=== PATIENT | female | born 1985 | race American Indian/Alaskan Native ===

== ENCOUNTER 2017-12-13 09:18 | Emergency (ER) | payer MEDICARE ==
[2017-12-13 11:59] LABS: HCG Qualitative,Urine Negative (Negative)
--- NOTE | 2017-12-13 12:07 | Emergency Department Report ---
HPI - General Chief Complaint: Fever Time Seen by Provider: 12/13/17 11:32 - HPI HPI: She is a 32-year-old female with history of hypertension controlled with medication who presents to ED complaining of low pelvic cramping and thinking she might be . Patient states she took a test yesterday at home that was negative but wants to be evaluated. Patient states she has a history of fibroids 1-2 years. Patient states she's never been . She denies vaginal bleeding, vaginal discharge, chest pain, fever, nausea or vomiting. She reports normal bowel movement ED Past Medical Hx - Past Medical History Hx Hypertension: Yes Additional medical history: fibroid - Medications Home Medications: Home Medications Medication Instructions Recorded Confirmed Last Taken Type traMADol [Ultram] 50 mg PO Q6HR PRN #20 tablet 12/13/17 Unknown Rx ED Review of Systems ROS: Stated complaint: FLU LIKE SYMPTOMS Other details as noted in HPI Constitutional: denies: chills, fever Eyes: denies: eye pain, eye discharge, vision change ENT: denies: ear pain, throat pain Respiratory: denies: cough, shortness of breath, wheezing Cardiovascular: denies: chest pain, palpitations Endocrine: no symptoms reported Gastrointestinal: denies: abdominal pain, nausea, vomiting, diarrhea Genitourinary: denies: urgency, dysuria, frequency, hematuria, discharge Musculoskeletal: denies: back pain, joint swelling, arthralgia Skin: denies: rash, lesions Neurological: denies: headache, weakness, paresthesias Psychiatric: denies: anxiety, depression Hematological/Lymphatic: denies: easy bleeding, easy bruising Physical Exam - Physical Exam Vital Signs: Vital Signs 12/13/17 09:35 Temperature 98.8 F Pulse Rate 80 Respiratory 16 Rate Blood Pressure 160/100 O2 Sat by Pulse 97 Oximetry Physical Exam: GENERAL: Alert and oriented x3, no apparent distress, Normal Gait, atraumatic. HEAD: Head is normocephalic and a-traumatic. LUNGS: Symetrical with respiration, No wheezing, no rales or crackles, CTAB. HEART: S1, S2 present, regular rate and rhythm without murmur, no rubs, no gallops. Non tender to palpation ABDOMEN: No organomegaly was noted,Positive bowel sounds, soft, and non- distended. . Nontender to palpation on all Quadrants, NO CVA tenderness. BACK: Full range of motion, no spinal tenderness, nontender to palpation. NEUROLOGIC: The patient is cooperative with no focal neurologic deficits. SKIN: Warm and dry, No lesions, No ulceration or induration present. ED Course Vital Signs 12/13/17 09:35 Temperature 98.8 F Pulse Rate 80 Respiratory 16 Rate Blood Pressure 160/100 O2 Sat by Pulse 97 Oximetry ED Medical Decision Making - Medical Decision Making This is a 32-year-old female presents with history of uterine fibroids and amenorrhea ED course: Urinalysis and urine test ordered test negative, urinalysis positive for yeast. Patient received Diflucan in ED prior to discharge. I discussed the patient denies shortness of follow-up with a primary care physician or [facility] I discussed the patient is given her referrals for [facility] and to follow-up. Patient is in no acute distress or respiratory distress. I discussed patient test is negative. I discussed blood pressure control with her indication, weight loss, and sometimes depending on size and position of uterus can cause amenorrhea and pelvic pain. Patient is alert and oriented 3, shows a sinus instructions given. Critical care attestation.: If time is entered above; I have spent that time in minutes in the direct care of this critically ill patient, excluding procedure time. ED Disposition Clinical Impression: History of uterine fibroid, examination or test, negative result, Amenorrhea, unspecified, Yeast cystitis Disposition: DC- TO HOME OR SELFCARE Is pt being admited?: No Does the pt Need Aspirin: No Condition: Stable Instructions: Uterine Fibroids (ED), Vulvovaginal Candidiasis (ED), Chronic Pelvic Pain in Women (ED) Additional Instructions: Make sure to follow up with the primary care physician as discussed. Follow-up with [facility] as referred test was negative today Take all your medications as you've been prescribed. If you have any worsening symptoms or develop new symptoms please return to ED immediately. Prescriptions: traMADol [Ultram] 50 mg PO Q6HR PRN #20 tablet PRN Reason: Pain Referrals: PRIMARY MD LOUIE [Primary Care Provider] - 3-5 Days SETH WHARTON MD [Referring] - 3-5 Days BERNARD QUILES MD [Referring] - 3-5 Days MARIO QUILES MD [Referring] - 3-5 Days Forms: Accompanied Note, Work/School Release Form(ED) Time of Disposition: 12:35
[2017-12-13 12:08] LABS: Bilirubin,Urine NEG (Negative); Blood,Urine NEG (Negative); Color,Urine Yellow (Yellow); Hyaline Casts,Urine 3 /LPF; Mucus,Urine FEW /HPF; Protein,Urine <15 mg/dL mg/dL (Negative); Urobilinogen,Urine < 2.0 mg/dL (<2.0)
[2017-12-13] MEDS ORDERED: DIFLUCAN PO ONE (13:00)
[2017-12-13 13:29] VITALS: BP 154/98
== END 2017-12-13 13:28 | disposition home or self-care (01) ==
LOC: ED 09:18
DX: N91.2 Amenorrhea, unspecified (principal); N30.90 Cystitis, unspecified without hematuria; I10 Essential (primary) hypertension
CPT/HCPCS: 81001; 81025

== ENCOUNTER 2018-02-28 09:28 | Emergency (ER) | payer MEDICARE ==
[2018-02-28 10:23] VITALS: BP 166/101
--- NOTE | 2018-02-28 11:36 | Emergency Department Report ---
ED Female HPI - General Chief complaint: Abdominal Pain Stated complaint: ABD PAIN Time Seen by Provider: 02/28/18 11:13 Source: patient Mode of arrival: Ambulatory Limitations: No Limitations - History of Present Illness Initial comments: This is a 32-year-old female with a history of hypertension controlled with Diovan daily. Who presents to ED complaining of continued menstrual period for the past 2 weeks. Patient states that her period is normally about 5 days. Patient states she started her period on 02/14/2018 she has any bleeding immediately. Patient states bleed is having nature. She reports a history of uterine fibroids otherwise no other history. Patient has a primary care physician Dr. Chilo Ta in [place] and states she has a follow-up next week. She denies fatigue, weakness, nausea vomiting, abdominal pain, chest pain, shortness of breath or any other problems. MD Complaint: vaginal bleeding -: week(s) (2) Are you Now?: No Associated Symptoms: denies other symptoms - Related Data Previous Rx's Medication Instructions Recorded Last Taken Type medroxyPROGESTERone ACETATE 10 mg PO QDAY #10 tablet 02/28/18 Unknown Rx [Provera] traMADol [Ultram 50 MG tab] 50 mg PO Q6HR PRN #20 tablet 02/28/18 Unknown Rx Allergies Allergy/AdvReac Type Severity Reaction Status Date / Time No Known Allergies Allergy Unverified 12/13/17 09:41 ED Review of Systems ROS: Stated complaint: ABD PAIN Other details as noted in HPI Constitutional: denies: chills, fever Eyes: denies: eye pain, eye discharge, vision change ENT: denies: ear pain, throat pain Respiratory: denies: cough, shortness of breath, wheezing Cardiovascular: denies: chest pain, palpitations Endocrine: no symptoms reported Gastrointestinal: denies: abdominal pain, nausea, diarrhea Genitourinary: abnormal menses. denies: urgency, dysuria, frequency, hematuria , discharge Musculoskeletal: denies: back pain, joint swelling, arthralgia Skin: denies: rash, lesions Neurological: denies: headache, weakness, paresthesias Psychiatric: denies: anxiety, depression Hematological/Lymphatic: denies: easy bleeding, easy bruising ED Past Medical Hx - Past Medical History Previous Medical History?: Yes Hx Hypertension: Yes Additional medical history: fibroid - Surgical History Past Surgical History?: No - Social History Smoking Status: Former Smoker Substance Use Type: Alcohol - Medications Home Medications: Home Medications Medication Instructions Recorded Confirmed Last Taken Type medroxyPROGESTERone ACETATE 10 mg PO QDAY #10 tablet 02/28/18 Unknown Rx [Provera] traMADol [Ultram 50 MG tab] 50 mg PO Q6HR PRN #20 tablet 02/28/18 Unknown Rx ED Physical Exam - General Limitations: No Limitations General appearance: alert, in no apparent distress - Head Head exam: Present: atraumatic, normocephalic - Eye Eye exam: Present: normal appearance - ENT ENT exam: Present: mucous membranes moist - Neck Neck exam: Present: normal inspection - Respiratory Respiratory exam: Present: normal lung sounds bilaterally. Absent: respiratory distress - Cardiovascular Cardiovascular Exam: Present: regular rate, normal rhythm. Absent: systolic murmur, diastolic murmur, rubs, gallop - GI/Abdominal GI/Abdominal exam: Present: soft, normal bowel sounds. Absent: distended, tenderness, guarding, rebound, mass - Extremities Exam Extremities exam: Present: normal inspection - Back Exam Back exam: Present: normal inspection - Neurological Exam Neurological exam: Present: alert, oriented X3 - Psychiatric Psychiatric exam: Present: normal affect, normal mood - Skin Skin exam: Present: warm, dry, intact, normal color. Absent: rash ED Course Vital Signs 02/28/18 10:19 Temperature 98.3 F Pulse Rate 82 Respiratory 20 Rate Blood Pressure 166/101 O2 Sat by Pulse 96 Oximetry ED Medical Decision Making - Lab Data Result diagrams: 02/28/18 11:21 02/28/18 11:21 Laboratory Last Values WBC 7.5 K/mm3 (4.5-11.0) 02/28/18 11:21 RBC 4.42 M/mm3 (3.65-5.03) 02/28/18 11:21 Hgb 11.0 gm/dl (10.1-14.3) 02/28/18 11:21 Hct 33.9 % (30.3-42.9) 02/28/18 11:21 MCV 77 fl (79-97) L 02/28/18 11:21 MCH 25 pg (28-32) L 02/28/18 11:21 MCHC 33 % (30-34) 02/28/18 11:21 RDW 18.9 % (13.2-15.2) H 02/28/18 11:21 Plt Count 297 K/mm3 (140-440) 02/28/18 11:21 Lymph % (Auto) 31.8 % (13.4-35.0) 02/28/18 11:21 Hardin % (Auto) 5.3 % (0.0-7.3) 02/28/18 11:21 Eos % (Auto) 2.5 % (0.0-4.3) 02/28/18 11:21 Baso % (Auto) 1.0 % (0.0-1.8) 02/28/18 11:21 Lymph # 2.4 K/mm3 (1.2-5.4) 02/28/18 11:21 Hardin # 0.4 K/mm3 (0.0-0.8) 02/28/18 11:21 Eos # 0.2 K/mm3 (0.0-0.4) 02/28/18 11:21 Baso # 0.1 K/mm3 (0.0-0.1) 02/28/18 11:21 Seg Neutrophils % 59.4 % (40.0-70.0) 02/28/18 11:21 Seg Neutrophils # 4.5 K/mm3 (1.8-7.7) 02/28/18 11:21 Sodium 135 mmol/L (137-145) L 02/28/18 11:21 Potassium 3.4 mmol/L (3.6-5.0) L 02/28/18 11:21 Chloride 95.0 mmol/L (98-107) L 02/28/18 11:21 Carbon Dioxide 33 mmol/L (22-30) H 02/28/18 11:21 Anion Gap 10 mmol/L 02/28/18 11:21 BUN 8 mg/dL (7-17) 02/28/18 11:21 Creatinine 0.5 mg/dL (0.7-1.2) L 02/28/18 11:21 Estimated GFR > 60 ml/min 02/28/18 11:21 BUN/Creatinine Ratio 16 % 02/28/18 11:21 Glucose 85 mg/dL (65-100) 02/28/18 11:21 Calcium 8.7 mg/dL (8.4-10.2) 02/28/18 11:21 HCG, Qual Negative (Negative) 02/28/18 11:21 Blood Type B POSITIVE 02/28/18 11:18 Antibody Screen Negative 02/28/18 11:18 - Radiology Data Radiology results: report reviewed, image reviewed FINAL REPORT EXAM: US TRANSVAGINAL HISTORY: vag bleed/pelv pain TECHNIQUE: Pelvic ultrasound. Transvaginal exam read in conjunction with transabdominal study performed concurrently PRIORS: None. FINDINGS: Examination limited due to body habitus. The uterus measures 8.6 x 7.7 x 6.9 cm. There is a posterior uterine fibroid measuring 4.6 x 4.2 x 4.3 cm. Endometrial thickness is 10 mm. The right ovary measures 4.4 x 5.5 x 4.5 cm. There is a 4.2 cm right ovarian cyst seen on the transabdominal study.. The left ovary m is not visualized. There is blood flow within left ovary . There is no free fluid in the cul-de-sac. IMPRESSION: There is a posterior uterine fibroid measuring 4.6 x 4.2 x 4.3 cm. Left ovary not visualized. 4.2 cm right ovarian cyst. Suggest follow-up in 4 weeks to confirm resolution. Transcribed By: OBED Dictated By: DEE DEE POOL MD Electronically Authenticated By: DEE DEE POOL MD Signed Date/Time: 02/28/18 2411 - Medical Decision Making 32-year-old female presents with uterine fibroids, right ovarian cyst causing a menorrhagia ED course: Labs within normal limits, ultrasound shows ovarian cysts as well as uterine fibroid I discussed his findings with the patient. I discussed the patient to follow- up in [facility] for management. I discussed the patient she'll be given pain medication for pain. I discussed the patient uterine fibroids as well as ovarian cyst usually cause bleeding irregularities. Vital signs are normal. Patient is in no acute distress Patient was asymptomatic in the ED due to elevated blood pressure. Patient states this is due to the fact that she has not taken her blood pressure medication today and forgot to take it. Patient states she would take an aggressive as she gets home. Critical care attestation.: If time is entered above; I have spent that time in minutes in the direct care of this critically ill patient, excluding procedure time. ED Disposition Clinical Impression: Menorrhagia with irregular cycle, Right ovarian cyst, Uterine fibroid Disposition: TO HOME OR SELFCARE Is pt being admited?: No Does the pt Need Aspirin: No Condition: Stable Instructions: Ovarian Cyst (ED), Uterine Fibroids (ED), Abdominal Pain (ED), Menorrhagia (ED) Additional Instructions: Make sure to follow up with the primary care physician as discussed. Take all your medications as you've been prescribed. If you have any worsening symptoms or develop new symptoms please return to ED immediately. Prescriptions: medroxyPROGESTERone ACETATE [Provera] 10 mg PO QDAY #10 tablet traMADol [Ultram 50 MG tab] 50 mg PO Q6HR PRN #20 tablet PRN Reason: Pain Referrals: PRIMARY CARE, [Primary Care Provider] - 3-5 Days SETH WHARTON MD [Referring] - 3-5 Days LUIS QUILES MD [Staff Physician] - 3-5 Days Forms: Work/School Release Form(ED) Time of Disposition: 15:13
[2018-02-28 11:38] LABS: Basophils # (Auto) 0.1 K/mm3 (0.0-0.1); Eosinophils # (Auto) 0.2 K/mm3 (0.0-0.4); Eosinophils % (Auto) 2.5 % (0.0-4.3); Hematocrit 33.9 % (30.3-42.9); Lymphocytes # (Auto) 2.4 K/mm3 (1.2-5.4); Lymphocytes % (Auto) 31.8 % (13.4-35.0); Mean Corpuscular HGB Conc 33 % (30-34); Mean Corpuscular Volume 77 fl (79-97); Monocytes # (Auto) 0.4 K/mm3 (0.0-0.8); Monocytes % (Auto) 5.3 % (0.0-7.3); Platelet Count 297 K/mm3 (140-440); Red Blood Count 4.42 M/mm3 (3.65-5.03); Red Cell Distribution Width 18.9 % (13.2-15.2)
[2018-02-28 11:45] LABS: Mean Corpuscular Hemoglobin 25 pg (28-32)
[2018-02-28 11:52] LABS: BUN/Creatinine Ratio 16; Blood Urea Nitrogen 8 mg/dL (7-17); Calcium 8.7 mg/dL (8.4-10.2); Hemolysis Index 0
--- NOTE | 2018-02-28 14:09 | Ultrasound Report ---
FINAL REPORT EXAM: US TRANSVAGINAL HISTORY: vag bleed/pelv pain TECHNIQUE: Pelvic ultrasound. Transvaginal exam read in conjunction with transabdominal study performed concurrently PRIORS: None. FINDINGS: Examination limited due to body habitus. The uterus measures 8.6 x 7.7 x 6.9 cm. There is a posterior uterine fibroid measuring 4.6 x 4.2 x 4.3 cm. Endometrial thickness is 10 mm. The right ovary measures 4.4 x 5.5 x 4.5 cm. There is a 4.2 cm right ovarian cyst seen on the transabdominal study.. The left ovary m is not visualized. There is blood flow within left ovary . There is no free fluid in the cul-de-sac. IMPRESSION: There is a posterior uterine fibroid measuring 4.6 x 4.2 x 4.3 cm. Left ovary not visualized. 4.2 cm right ovarian cyst. Suggest follow-up in 4 weeks to confirm resolution.
--- NOTE | 2018-02-28 14:10 | Ultrasound Report ---
FINAL REPORT EXAM: US PELVIC COMPLETE HISTORY: vag bleed/pelv pain TECHNIQUE: Pelvic ultrasound. Transabdominal study read in conjunction with transvaginal study performed concurrently PRIORS: None. FINDINGS: Examination limited due to body habitus. The uterus measures 8.6 x 7.7 x 6.9 cm. There is a posterior uterine fibroid measuring 4.6 x 4.2 x 4.3 cm. Endometrial thickness is 10 mm. The right ovary measures 4.4 x 5.5 x 4.5 cm. There is a 4.2 cm right ovarian cyst. The left ovary m is not visualized. There is blood flow within left ovary . There is no free fluid in the cul-de-sac. IMPRESSION: There is a posterior uterine fibroid measuring 4.6 x 4.2 x 4.3 cm. Left ovary not visualized. 4.2 cm right ovarian cyst. Suggest follow-up in 4 weeks to confirm resolution.
== END 2018-02-28 15:29 | disposition home or self-care (01) ==
LOC: ED 09:28
DX: N92.1 Excessive and frequent menstruation with irregular cycle (principal); D25.9 Leiomyoma of uterus, unspecified; I10 Essential (primary) hypertension; Z87.891 Personal history of nicotine dependence
CPT/HCPCS: 36415; 76830; 76856; 80048; 84703; 85025; 86850; 86900; 86901; 99284

== ENCOUNTER 2018-03-20 09:11 | Outpatient (CLI) | payer MEDICARE ==
--- NOTE | 2018-03-20 12:06 | Ultrasound Report ---
ULTRASOUND PELVIC COMPLETE ULTRASOUND TRANSVAGINAL HISTORY: Leiomyoma of uterus. COMPARISON: 02/28/18. TECHNIQUE: Transabdominal and transvaginal ultrasound with color doppler interrogation. FINDINGS: Uterus: The uterus is anteverted and measures 10.0 x 4.6 x 6.2 cm. A subserosal fibroid in the posterior wall measures up to 5.7 cm in diameter. A smaller intramural fibroid in the anterior wall measures 1.9 cm. No large submucosal fibroid is identified. The cervix is unremarkable. Endometrium: 7 mm. No abnormality appreciated. Right ovary: 4.3 x 2.2 x 2.9 cm. Left ovary: 3.5 x 1.7 x 3.7 cm. No pelvic fluid or mass is identified. Normal color doppler interrogation. IMPRESSION: Uterine fibroid disease as described. The 4.2 cm right ovarian cyst seen on the previous exam has resolved.
== END 2018-03-20 09:12 | disposition home or self-care (01) ==
LOC: US 09:11
PROVIDERS: ATTEND Obstetrics & Gynecology Gynecology
DX: D25.9 Leiomyoma of uterus, unspecified (principal); N83.201 Unspecified ovarian cyst, right side; I10 Essential (primary) hypertension; Z87.891 Personal history of nicotine dependence
CPT/HCPCS: 76830; 76856

== ENCOUNTER 2019-07-07 00:05 | Inpatient (IN) | payer MEDICARE ==
[2019-07-07] MEDS ORDERED: SODIUM CHLORIDE 0.9% 500 ML 500 ML IV ONE (00:20)
[2019-07-07 01:02] LABS: Basophils # (Auto) 0.1 K/mm3 (0.0-0.1); Basophils % (Auto) 0.5 % (0.0-1.8); Hematocrit 35.5 % (30.3-42.9); Lymphocytes # (Auto) 1.9 K/mm3 (1.2-5.4); Lymphocytes % (Auto) 10.5 % (13.4-35.0); Mean Corpuscular HGB Conc 31 % (30-34); Mean Corpuscular Volume 76 fl (79-97); Monocytes # (Auto) 1.1 K/mm3 (0.0-0.8); Monocytes % (Auto) 5.8 % (0.0-7.3); Platelet Count 330 K/mm3 (140-440); Red Blood Count 4.68 M/mm3 (3.65-5.03)
[2019-07-07 01:10] LABS: Red Cell Distribution Width 20.3 % (13.2-15.2)
[2019-07-07 01:14] LABS: INR 3.89 (0.87-1.13)
[2019-07-07 01:17] LABS: Alanine Aminotransferase 11 units/L (7-56); Albumin 3.3 g/dL (3.9-5); BUN/Creatinine Ratio 7; Blood Urea Nitrogen 8 mg/dL (7-17); Calcium 8.6 mg/dL (8.4-10.2); Hemolysis Index 7
[2019-07-07] MEDS ORDERED: fentaNYL 100 MCG/2 ML INJ IV ONE (01:33)
[2019-07-07] MEDS ORDERED: ONDANSETRON 4 MG/2 ML INJ IV ONE (01:33)
[2019-07-07] MEDS ORDERED: SODIUM CHLORIDE 0.9% 1000 ML 1,000 ML IV ONE ×2 (01:33→04:04)
[2019-07-07] MEDS ORDERED: IBUPROFEN 800 MG TAB PO ONE (01:36)
[2019-07-07] MEDS ORDERED: POTASSIUM CHLORIDE ER 20 MEQ TAB PO ONE (01:36)
--- NOTE | 2019-07-07 01:40 | Emergency Department Report ---
HPI - General Chief Complaint: Abdominal Pain Time Seen by Provider: 07/07/19 01:22 - HPI HPI: Room 1 The patient is a 33-year-old female presenting with a chief complaint abdominal pain. The patient states for the past 5 days she's had intermittent bilateral lower quadrant abdominal pain described as sharp in nature. She admits to nausea and vomiting in addition to a small amount of diarrhea. Patient missed a subjective fever which began tonight. Patient complains of diffuse weakness. Patient states she's been taking Tylenol for pain but does not help. The patient states she has been following the directions on the Tylenol bottle regarding dosing Location: [See above] Duration: [See above] Quality: [See above] Severity: [See above] Timing: [See above] Context: [See above] Modifying factors: [See above] Associated signs and symptoms: [see above] ED Past Medical Hx - Past Medical History Previous Medical History?: Yes Hx Hypertension: Yes Additional medical history: fibroid - Surgical History Past Surgical History?: No - Family History Family history: no significant - Social History Smoking Status: Never Smoker Substance Use Type: None (denies illicit drug use) - Medications Home Medications: Home Medications Medication Instructions Recorded Confirmed Last Taken Type medroxyPROGESTERone ACETATE 10 mg PO QDAY #10 tablet 02/28/18 Unknown Rx [Provera] traMADol [Ultram 50 MG tab] 50 mg PO Q6HR PRN #20 tablet 02/28/18 Unknown Rx ED Review of Systems ROS: Stated complaint: VOMITING,DIARRHEA, ABD PAIN Other details as noted in HPI Constitutional: fever (subjective) Eyes: denies: eye pain ENT: denies: throat pain Respiratory: no symptoms reported Cardiovascular: denies: chest pain Endocrine: no symptoms reported Gastrointestinal: abdominal pain, nausea, vomiting, diarrhea Musculoskeletal: denies: back pain Neurological: denies: headache Physical Exam - Physical Exam Vital Signs: Vital Signs 07/07/19 00:18 Temperature 102.1 F H Pulse Rate 121 H Respiratory 20 Rate Blood Pressure 141/49 O2 Sat by Pulse 92 Oximetry Physical Exam: GENERAL: The patient is well-developed well-nourished female lying on stretcher not appearing to be in acute distress. [] HEENT: Normocephalic. Atraumatic. Extraocular motions are intact. Patient has moist mucous membranes. NECK: Supple. Trachea midline CHEST/LUNGS: Clear to auscultation. There is no respiratory distress noted. HEART/CARDIOVASCULAR: Regular. There is no tachycardia. There is no gallop rub or murmur. ABDOMEN: Abdomen is soft, with tenderness to palpation greatest in the suprapubic and left lower quadrant. Patient has normal bowel sounds. There is no abdominal distention. SKIN: There is no rash. There is no edema. There is no diaphoresis. NEURO: The patient is awake, alert, and oriented. The patient is cooperative. The patient has normal speech MUSCULOSKELETAL: There is no evidence of acute injury. Pelvic: Maroon-colored discharge in vaginal vault ED Course Vital Signs 07/07/19 00:18 Temperature 102.1 F H Pulse Rate 121 H Respiratory 20 Rate Blood Pressure 141/49 O2 Sat by Pulse 92 Oximetry - Consultations Consultation #1: 07/07/19 05:45 MANAGER INFORMATION paged 07/07/19 05:[address] Knapp. Will admit ED Medical Decision Making - Lab Data Result diagrams: 07/07/19 00:33 07/07/19 00:33 Laboratory Tests 07/07/19 07/07/19 07/07/19 00:33 00:33 00:33 WBC 18.6 H RBC 4.68 Hgb 11.0 Hct 35.5 MCV 76 L MCH 23 L MCHC 31 RDW 20.3 H Plt Count 330 Lymph % (Auto) 10.5 L Otero % (Auto) 5.8 Eos % (Auto) 0.0 Baso % (Auto) 0.5 Lymph # 1.9 Otero # 1.1 H Eos # 0.0 Baso # 0.1 Seg Neutrophils % 83.2 H Seg Neutrophils # 15.5 H PT 37.6 H INR 3.89 H APTT VBG pH Sodium 137 Potassium 2.7 L* Chloride 93.1 L Carbon Dioxide 30 Anion Gap 17 BUN 8 Creatinine 1.1 Estimated GFR > 60 BUN/Creatinine Ratio 7 Glucose 128 H Lactic Acid Calcium 8.6 Total Bilirubin 0.60 AST 13 ALT 11 Alkaline Phosphatase 55 Total Protein 8.4 H Albumin 3.3 L Albumin/Globulin Ratio 0.6 Lipase HCG, Qual 07/07/19 07/07/19 07/07/19 00:33 00:33 00:33 WBC RBC Hgb Hct MCV MCH MCHC RDW Plt Count Lymph % (Auto) Otero % (Auto) Eos % (Auto) Baso % (Auto) Lymph # Otero # Eos # Baso # Seg Neutrophils % Seg Neutrophils # PT INR APTT VBG pH 7.497 H Sodium Potassium Chloride Carbon Dioxide Anion Gap BUN Creatinine Estimated GFR BUN/Creatinine Ratio Glucose Lactic Acid 1.50 Calcium Total Bilirubin AST ALT Alkaline Phosphatase Total Protein Albumin Albumin/Globulin Ratio Lipase HCG, Qual Negative 07/07/19 07/07/19 07/07/19 01:41 01:41 03:42 WBC RBC Hgb Hct MCV MCH MCHC RDW Plt Count Lymph % (Auto) Otero % (Auto) Eos % (Auto) Baso % (Auto) Lymph # Otero # Eos # Baso # Seg Neutrophils % Seg Neutrophils # PT 15.9 H INR 1.30 H APTT 27.1 VBG pH Sodium Potassium Chloride Carbon Dioxide Anion Gap BUN Creatinine Estimated GFR BUN/Creatinine Ratio Glucose Lactic Acid 1.40 Calcium Total Bilirubin AST ALT Alkaline Phosphatase Total Protein Albumin Albumin/Globulin Ratio Lipase 15 HCG, Qual - Radiology Data Radiology results: report reviewed (CT abdomen and pelvis), image reviewed (CT abdomen and pelvis) [place] [id number] Cat Scan Report Signed Patient: MILAGRO SULLIVAN MR#: [id number] : 1985 Acct:[id number] Age/Sex: 33 / F ADM Date: 07/07/19 Loc: ED At [facility] Dr: Ordering Physician: GRIFFIN MORALES MD Date of Service: 07/07/19 Procedure(s): CT abdomen pelvis w con Accession Number(s): [id number] cc: GRIFFIN MORALES MD CT ABDOMEN AND PELVIS WITH CONTRAST INDICATION / CLINICAL INFORMATION: left lower quadrant abdominal pain. TECHNIQUE: Axial CT images were obtained through the abdomen and pelvis after 100 mL Omnipaque [address] scans at this location are performed using CT dose reduction for ALARA by means of automated exposure control. COMPARISON: CT dated 02/25/19 FINDINGS: LOWER CHEST: No significant abnormality. LIVER: No significant abnormality. GALLBLADDER: No significant abnormality. BILE DUCTS: No significant abnormality. PANCREAS: No significant abnormality. SPLEEN: No significant abnormality. ADRENALS: No significant abnormality. RIGHT KIDNEY and URETER: Small cysts are unchanged. No acute abnormality. LEFT KIDNEY and URETER: No significant abnormality. STOMACH and SMALL BOWEL: No significant abnormality. COLON: No sign ificant abnormality. APPENDIX: No significant abnormality. PERITONEUM: No free fluid. No free air. There is a multi loculated, somewhat tubular abscess in the upper left hemipelvis extending to the upper midline pelvis. This abscess appears to originate in the left adnexa. This collection measures roughly 12 x 6 x 5 cm. There are mild surrounding inflammatory changes. LYMPH NODES: No significant adenopathy. AORTA and ARTERIES: No significant abnormality. IVC and VEINS: No significant abnormality. URINARY BLADDER: No significant abnormality. REPRODUCTIVE ORGANS: Uterine fibroids are unchanged. Right adnexa shows no acute abnormality. Pelvic abscess abuts the left ovary. ADDITIONAL FINDINGS: None. SKELETAL SYSTEM: No significant abnormality. IMPRESSION: 1. Multiloculated, tubular abscess in the left pelvis. This may represent a tubo-ovarian abscess. Signer Name: Kayce Borges MD Signed: 07/07/2019 4:05 AM Workstation Name: [id number] Transcribed By: DT Dictated By: Kem Borges MD Electronically Authenticated By: Kem Borges MD Signed Date/Time: 07/07/195 DD/ [id number] TD/TT: - Differential Diagnosis gastroenteritis, diverticulitis, pyelonephritis Critical care attestation.: If time is entered above; I have spent that time in minutes in the direct care of this critically ill patient, excluding procedure time. ED Disposition Clinical Impression: Acute abdominal pain, Tubo-ovarian abscess, Hypokalemia, Leukocytosis Disposition: OP ADMIT IP TO THIS HOSP Is pt being admited?: Yes Does the pt Need Aspirin: No Condition: Fair Instructions: Abdominal Pain (ED) Referrals: PRIMARY CARE, [Referring] - 3-5 Days Time of Disposition: 05:51 (Admitted to Dr Knapp)
[2019-07-07 02:04] LABS: INR 1.3 (0.87-1.13); Partial Thromboplastin Time 27.1 Sec. (24.2-36.6)
[2019-07-07] MEDS: POTASSIUM CHLORIDE 10 MEQ 10 MEQ/100 ML BAG IV SCH ×4 (02:51→08:06)
--- NOTE | 2019-07-07 04:10 | Cat Scan Report ---
CT ABDOMEN AND PELVIS WITH CONTRAST INDICATION / CLINICAL INFORMATION: left lower quadrant abdominal pain. TECHNIQUE: Axial CT images were obtained through the abdomen and pelvis after 100 mL Omnipaque [address] scans at this location are performed using CT dose reduction for ALARA by means of automated exposure control. COMPARISON: CT dated 02/25/19 FINDINGS: LOWER CHEST: No significant abnormality. LIVER: No significant abnormality. GALLBLADDER: No significant abnormality. BILE DUCTS: No significant abnormality. PANCREAS: No significant abnormality. SPLEEN: No significant abnormality. ADRENALS: No significant abnormality. RIGHT KIDNEY and URETER: Small cysts are unchanged. No acute abnormality. LEFT KIDNEY and URETER: No significant abnormality. STOMACH and SMALL BOWEL: No significant abnormality. COLON: No significant abnormality. APPENDIX: No significant abnormality. PERITONEUM: No free fluid. No free air. There is a multi loculated, somewhat tubular abscess in the u pper left hemipelvis extending to the upper midline pelvis. This abscess appears to originate in the left adnexa. This collection measures roughly 12 x 6 x 5 cm. There are mild surrounding inflammatory changes. LYMPH NODES: No significant adenopathy. AORTA and ARTERIES: No significant abnormality. IVC and VEINS: No significant abnormality. URINARY BLADDER: No significant abnormality. REPRODUCTIVE ORGANS: Uterine fibroids are unchanged. Right adnexa shows no acute abnormality. Pelvic abscess abuts the left ovary. ADDITIONAL FINDINGS: None. SKELETAL SYSTEM: No significant abnormality. IMPRESSION: 1. Multiloculated, tubular abscess in the left pelvis. This may represent a tubo-ovarian abscess. Signer Name: Kayce Borges MD Signed: 07/07/2019 4:05 AM Workstation Name: [id number]
[2019-07-07] MEDS ORDERED: AMPICILLIN/SULBACTA 3GM/100ML 3 GM/100 ML BAG IV ONE (04:52)
[2019-07-07] MEDS ORDERED: DOXYCYCLINE 100 MG CAPSULE PO ONE (04:52)
[2019-07-07 05:49] LABS: Bacteria,Urine 2+ /HPF (Negative); Bilirubin,Urine NEG (Negative); Blood,Urine LG (Negative); Color,Urine Amber (Yellow); Mucus,Urine 2+ /HPF
--- NOTE | 2019-07-07 06:25 | Ultrasound Report ---
ULTRASOUND PELVIS INDICATION / CLINICAL INFORMATION: left pelvic pain, poss tubo-ovarian abscess on CT. TECHNIQUE: Transabdominal and Transvaginal. Duplex Color Doppler used: Yes. COMPARISON: CT dated 07/07/19 FINDINGS: UTERUS: Present. - Appearance (if present): Mildly enlarged and heterogeneous. - Size in cm (if present): 8.9 x 4.9 x 3.8. - Endometrial Complex (if present): No significant abnormality.. Thickness in cm (if measured) = 1.0 - Mass lesions: Posterior fibroid measuring 5.2 cm corresponding to the largest fibroid noted on CT. - Additional findings: None. RIGHT ADNEXA: No significant ovarian cyst or mass. Normal color Doppler blood flow. LEFT ADNEXA: Left ovary not well visualized part from fluid collection. URINARY BLADDER: Not well visualized. FREE FLUID: None. ADDITIONAL FINDINGS: Complex fluid collection in the upper pelvis and left adnexa as seen on CT. Therese ection measures about 13.4 x 6.4 cm. IMPRESSION: 1. Complex fluid collection in the upper pelvis and left adnexa as seen on CT scan. Tubo-ovarian absc ess remains a diagnostic consideration. 2. Left ovary not well visualized part from the fluid collection. 3. Uterine fibroids. Signer Name: Kayce Borges MD Signed: 07/07/2019 6:21 AM Workstation Name: [id number]
[2019-07-07] MEDS ORDERED: SODIUM CHLORIDE 0.9% 500 ML 500 ML ONE (06:47)
[2019-07-07] MEDS ORDERED: POTASSIUM CHLORIDE 10 MEQ 10 MEQ/100 ML BAG IV ONE (07:48)
--- NOTE | 2019-07-07 09:23 | History and Physical Report ---
History of Present Illness Date of admission: 07/07/19 05:49 Chief complaint: abdominal pain vomiting dizzy History of present illness: 33yo G0 presented to ER complaining of abdominal pain, vomiting and dizziness x 1 week. She was found to have tachycardia (HR 100-120), fever (102.1), le ukocytosis and 13cm left pelvic mass concerning for tubo-ovarian abscess without rupture. She states she thought she had the flu. She has received Unasyn and Doxycycline and temperature responded to 98.6. Her tachycardia has resolved. She is now hemodynamically stable. Of note, Mrs. Wiley has a history of uterine fibroids and irregular bleeding. She is on her menses and report her menstrual cycles are heavy and require 3-4 heavy pads to be work at time. Past History Past Medical History: hypertension, other (obstructive sleep apnea - currently being worked up by PCP, morbid obesity) Past Surgical History: no surgical history [employer] History: gonorrhea (treated - remote past), herpes Family/Genetic History: hypertension, other (aunt-breast cancer) Social history: , lives with family, other (denies alcohol, last marijuana use >1 year) Medications and Allergies Allergies Allergy/AdvReac Type Severity Reaction Status Date / Time No Known Allergies Allergy Unverified 12/13/17 09:41 Home Medications Medication Instructions Recorded Confirmed Last Taken Type Valsartan/Hydrochlorothiazide 1 each PO DAILY 07/07/19 07/07/19 Unknown History [Valsartan-Hctz 320-25 mg Tab] valACYclovir [Valtrex] 500 mg PO DAILY 07/07/19 07/07/19 Unknown History Review of Systems Ears, nose, mouth and throat: other (acanthosis nigricans bilateral maxilla) Gastrointestinal: abdominal pain (Left lower quadrant) - Vital Signs Vital signs: Vital Signs Temp Pulse Resp BP Pulse Ox 102.1 F H 121 H 20 141/49 92 07/07/19 00:18 07/07/19 00:18 07/07/19 00:18 07/07/19 00:18 07/07/19 00:18 Temp Pulse Resp BP Pulse Ox 98.7 F 107 H 22 135/83 95 07/07/19 04:02 07/07/19 05:16 07/07/19 05:16 07/07/19 07:01 07/07/19 07:01 Results Result Diagrams: 07/08/19 05:11 07/08/19 07:07 Abnormal lab results 07/07/19 07/07/19 07/07/19 Range/Units 00:33 00:33 00:33 WBC 18.6 H (4.5-11.0) K/mm3 MCV 76 L (79-97) fl MCH 23 L (28-32) pg RDW 20.3 H (13.2-15.2) % Lymph % (Auto) 10.5 L (13.4-35.0) % [place] # 1.1 H (0.0-0.8) K/mm3 Seg Neutrophils % 83.2 H (40.0-70.0) % Seg Neutrophils # 15.5 H (1.8-7.7) K/mm3 PT 37.6 H (12.2-14.9) Sec. INR 3.89 H (0.87-1.13) VBG pH (7.320-7.420) Potassium 2.7 L* (3.6-5.0) mmol/L Chloride 93.1 L (98-107) mmol/L Glucose 128 H (65-100) mg/dL Total Protein 8.4 H (6.3-8.2) g/dL Albumin 3.3 L (3.9-5) g/dL Ur Specific [place] (1.003-1.030) Urine WBC (Auto) (0.0-6.0) /HPF 07/07/19 07/07/19 07/07/19 Range/Units 00:33 01:41 05:02 WBC (4.5-11.0) K/mm3 MCV (79-97) fl MCH (28-32) pg RDW (13.2-15.2) % Lymph % (Auto) (13.4-35.0) % [place] # (0.0-0.8) K/mm3 Seg Neutrophils % (40.0-70.0) % Seg Neutrophils # (1.8-7.7) K/mm3 PT 15.9 H (12.2-14.9) Sec. INR 1.30 H (0.87-1.13) VBG pH 7.497 H (7.320-7.420) Potassium (3.6-5.0) mmol/L Chloride (98-107) mmol/L Glucose (65-100) mg/dL Total Protein (6.3-8.2) g/dL Albumin (3.9-5) g/dL Ur Specific [place] > 1.030 H (1.003-1.030) Urine WBC (Auto) 16.0 H (0.0-6.0) /HPF All other labs normal. Assessment and Plan - Patient Problems (1) Hypokalemia Current Visit: Yes Status: Acute Plan to address problem: Replace potassium. Repeat BMP in AM (2) Leukocytosis Current Visit: Yes Status: Acute (3) Tubo-ovarian abscess Current Visit: Yes Status: Acute Plan to address problem: Admit Treat with antibiotics x 48hrs Plan conservative (IR drainage) vs surgical management due to size of abscess and risk of rupture No indication of rupture on imaging Repeat CBC daily. Telemetry. Spoke with Dr. Woodard, interventional radiologist, and reviewed CT with him. He agrees origin is tubo-ovarian in nature and believes likelihood of successful IR drainage is high. Plan is to make patient NPO Tuesday night and do procedure Tuesday. This is the safest plan that will allow antibiotics for 24-48hrs before procedure while she is hemodynamically stable. If patient clinically declines, will take to OR for exploratory laparotomy. (4) Heavy menstrual bleeding Current Visit: Yes Status: Acute Plan to address problem: I discussed with Ms Wiley the need for outpatient follow-up with endometrial biopsy due to her irregular heavy menses to rule out ovarian cancer and/or hyperplasia. She states her PCP has scheduled her an appointment for a licensed optician for outpatient evaluation.
[2019-07-07] MEDS: GENTAMICIN 480 MG in SODIUM CHLORIDE 0.9% 100 ML IV SCH (13:19)
[2019-07-07] MEDS: POTASSIUM CHLORIDE 20 MEQ in LACTATED RINGERS 1,000 ML IV SCH ×2 (13:22→22:10)
--- NOTE | 2019-07-07 14:56 | Consultation ---
History of Present Illness - Reason for Consult Consult date: 07/07/19 pelvic collection - History of Present Illness 33yo G0 presented to ER complaining of abdominal pain, vomiting and dizziness x 1 week. She was found to have tachycardia (HR 100-120), fever (102.1), leukocytosis and 13cm left pelvic mass concerning for tubo-ovarian abscess without rupture. She states she thought she had the flu. She has received Unasyn and Doxycycline and temperature responded to 98.6. Her tachycardia has resolved. She is now hemodynamically stable. Patient reports that she has had pain for a week and has had fevers since Tuesday. She is feeling better today. Past History Past Medical History: other (morbid obesity) Past Surgical History: No surgical history Social history: , lives with family, other (denies alcohol, last marijuana use >1 year) Medications and Allergies Allergies Allergy/AdvReac Type Severity Reaction Status Date / Time No Known Allergies Allergy Unverified 12/13/17 09:41 Home Medications Medication Instructions Recorded Confirmed Last Taken Type Valsartan/Hydrochlorothiazide 1 each PO DAILY 07/07/19 07/07/19 Unknown History [Valsartan-Hctz 320-25 mg Tab] valACYclovir [Valtrex] 500 mg PO DAILY 07/07/19 07/07/19 Unknown History Active Meds: Active Medications Clindamycin HCl (Cleocin 900 Mg/50 Ml) 900 mg in 50 mls @ 100 mls/hr IV Q8HR S ; Protocol Last Admin: 07/07/19 13:20 Dose: 100 mls/hr Documented by: Potassium Chloride 20 meq/ (Lactated Ringer's) 1,010 mls @ 125 mls/hr IV DIRECT [facility] Stop: 07/08/19 11:59 Last Admin: 07/07/19 13:22 Dose: 125 mls/hr Documented by: Gentamicin Sulfate 480 mg/ (Sodium Chloride) 112 mls @ 200 mls/hr IV Q24H [facility] Last Admin: 07/07/19 13:19 Dose: 200 mls/hr Documented by: Review of Systems All systems: negative (see HPI) Exam - Constitutional Vitals: Temp Pulse Resp BP Pulse Ox 98.9 F 105 H 18 143/79 93 07/07/19 10:42 07/07/19 10:42 07/07/19 10:42 07/07/19 10:42 07/07/19 10:42 General appearance: Present: no acute distress - EENT Eyes: Present: EOM intact ENT: hearing intact - Respiratory Respiratory effort: normal - Abdominal General gastrointestinal: Present: tender (pelvic pain) - Psychiatric Psychiatric: appropriate mood/affect, cooperative Results - Labs CBC & Chem 7: 07/07/19 00:33 07/07/19 00:33 Labs: Abnormal lab results 07/07/19 07/07/19 07/07/19 Range/Units 00:33 00:33 00:33 WBC 18.6 H (4.5-11.0) K/mm3 MCV 76 L (79-97) fl MCH 23 L (28-32) pg RDW 20.3 H (13.2-15.2) % Lymph % (Auto) 10.5 L (13.4-35.0) % [place] # 1.1 H (0.0-0.8) K/mm3 Seg Neutrophils % 83.2 H (40.0-70.0) % Seg Neutrophils # 15.5 H (1.8-7.7) K/mm3 PT 37.6 H (12.2-14.9) Sec. INR 3.89 H (0.87-1.13) VBG pH (7.320-7.420) Potassium 2.7 L* (3.6-5.0) mmol/L Chloride 93.1 L (98-107) mmol/L Glucose 128 H (65-100) mg/dL Total Protein 8.4 H (6.3-8.2) g/dL Albumin 3.3 L (3.9-5) g/dL Ur Specific Ava (1.003-1.030) Urine WBC (Auto) (0.0-6.0) /HPF 07/07/19 07/07/19 07/07/19 Range/Units 00:33 01:41 05:02 WBC (4.5-11.0) K/mm3 MCV (79-97) fl MCH (28-32) pg RDW (13.2-15.2) % Lymph % (Auto) (13.4-35.0) % [place] # (0.0-0.8) K/mm3 Seg Neutrophils % (40.0-70.0) % Seg Neutrophils # (1.8-7.7) K/mm3 PT 15.9 H (12.2-14.9) Sec. INR 1.30 H (0.87-1.13) VBG pH 7.497 H (7.320-7.420) Potassium (3.6-5.0) mmol/L Chloride (98-107) mmol/L Glucose (65-100) mg/dL Total Protein (6.3-8.2) g/dL Albumin (3.9-5) g/dL Ur Specific Ava > 1.030 H (1.003-1.030) Urine WBC (Auto) 16.0 H (0.0-6.0) /HPF - Imaging and Cardiology CT scan - abdomen: report reviewed, image reviewed Assessment and Plan 33-year-old female with leukocytosis, pelvic pain, and CT findings suggestive of tubo-ovarian abscess consulted for evaluation. Agree with antibiotics for 48 hours. I'll make patient nothing by mouth after midnight for Tuesday for drainage of pelvic collection. Risks, benefits, and alternatives discussed with the patient.
[2019-07-07] MEDS ORDERED: diphenhydrAMINE 25 MG CAP PO PRN (18:40)
[2019-07-07] MEDS: oxyCODONE /ACETAMINOPHEN 5-325MG TAB PO PRN (18:53)
[2019-07-08 05:59] LABS: Basophils % (Auto) 0.1 % (0.0-1.8); Eosinophils % (Auto) 0.1 % (0.0-4.3); Hemoglobin 8.5 gm/dl (10.1-14.3); Lymphocytes # (Auto) 0.8 K/mm3 (1.2-5.4); Mean Corpuscular HGB Conc 31 % (30-34); Mean Corpuscular Volume 76 fl (79-97); Monocytes # (Auto) 0.8 K/mm3 (0.0-0.8); Monocytes % (Auto) 5.9 % (0.0-7.3); Platelet Count 237 K/mm3 (140-440); Red Blood Count 3.54 M/mm3 (3.65-5.03)
[2019-07-08 06:01] LABS: Red Cell Distribution Width 20.5 % (13.2-15.2)
[2019-07-08 06:16] LABS: Alanine Aminotransferase 9 units/L (7-56); Albumin 2.4 g/dL (3.9-5); BUN/Creatinine Ratio 12; Blood Urea Nitrogen 13 mg/dL (7-17); Calcium 7.4 mg/dL (8.4-10.2); Hemolysis Index 0
[2019-07-08] MEDS: oxyCODONE /ACETAMINOPHEN 5-325MG TAB PO PRN ×3 (07:11→19:17)
--- NOTE | 2019-07-08 12:01 | Progress Note ---
Assessment and Plan - Patient Problems (1) Hypokalemia Current Visit: Yes Status: Acute Plan to address problem: Resolved (2) Leukocytosis Current Visit: Yes Status: Acute Plan to address problem: WBC 18-->14 (3) Tubo-ovarian abscess Current Visit: Yes Status: Acute Plan to address problem: Admit Continue antibiotics Plan conservative (IR drainage) on Tuesday due to size of abscess and risk of rupture Patient is responding well clinically to antibiotics. (4) Heavy menstrual bleeding Current Visit: Yes Status: Acute Subjective - Subjective Interval history: 33yo G0 Hospital Day #2 with tubo-ovarian abscess complains of back pain. She is ambulating and urinating without difficulty and has no adverse reactions to antibiotics. She understands the expectations of the IR drainage of TOA tomorrow and is aware a drain will be placed. She knows to remain NPO after midnight. Objective - Vital Signs Latest vital signs: Vital Signs Temp Pulse Pulse Resp Resp BP Pulse Ox 07/08/19 07:11 22 07/08/19 04:43 98.5 F 128 H 20 106/45 89 07/08/19 04:04 97 07/07/19 22:00 105 H 18 18 07/07/19 19:53 22 Intake and Output 07/07/19 07/08/19 07/08/19 23:59 07:59 15:59 Intake Total 2310 500 Balance 2310 500 Intake: IV 1060 CLEOCIN 900 MG/50 mL 900 50 mg In 50 ml @ 100 mls/hr IV Q8HR [facility] Rx#:[id number] KCl 20 Meq In Lactated 1010 Ringers 1,000 ml @ 125 mls/hr IV DIRECT [facility] Rx#:[id number] Oral 1250 500 Other: Total, Intake Amount 850 500 Voiding Method Toilet Weight 156.036 kg 160 kg Patient Weight 07/08/19 23:59 Weight 160 kg - Exam Abdomen: Present: soft, tenderness (to deep palpation on LLQ) - Labs Labs: Abnormal lab results 07/08/19 07/08/19 Range/Units 05:11 05:11 WBC 14.0 H (4.5-11.0) K/mm3 RBC 3.54 L (3.65-5.03) M/mm3 Hgb 8.5 L (10.1-14.3) gm/dl Hct 27.0 L D (30.3-42.9) % MCV 76 L (79-97) fl MCH 24 L (28-32) pg RDW 20.5 H (13.2-15.2) % Lymph % (Auto) 6.0 L (13.4-35.0) % Lymph # 0.8 L (1.2-5.4) K/mm3 Seg Neutrophils % 87.9 H (40.0-70.0) % Seg Neutrophils # 12.4 H (1.8-7.7) K/mm3 Sodium 136 L (137-145) mmol/L Potassium 7.4 H* D (3.6-5.0) mmol/L Glucose 120 H (65-100) mg/dL Calcium 7.4 L (8.4-10.2) mg/dL Albumin 2.4 L (3.9-5) g/dL
[2019-07-08] MEDS ORDERED: MAGNESIUM HYDROXIDE (MOM) ORAL LIQD UDC PO PRN (12:02)
[2019-07-08] MEDS ORDERED: DOCUSATE SODIUM 100 MG CAP PO PRN (12:02)
[2019-07-08] MEDS: FERROUS SULFATE 325 MG TAB PO SCH ×2 (13:21→22:27)
[2019-07-08] MEDS: GENTAMICIN 480 MG in SODIUM CHLORIDE 0.9% 100 ML IV SCH (13:22)
[2019-07-08] MEDS: VALSARTAN 40 MG TAB PO SCH (23:29)
[2019-07-09] MEDS: LACTATED RINGERS 1,000 ML IV SCH (03:30)
[2019-07-09] MEDS: ACETAMINOPHEN 325 MG TAB PO PRN ×3 (05:35→23:43)
[2019-07-09] MEDS: AMPICILLIN/NS 2 GM/100 ML 2 GM/100 ML BAG IV SCH ×3 (06:25→18:57)
[2019-07-09] MEDS ORDERED: fentaNYL 100 MCG/2 ML INJ IV ONE (08:26)
[2019-07-09] MEDS ORDERED: MIDAZOLAM 5 MG/5 ML INJ MDV IV ONE ×2 (08:26→08:40)
[2019-07-09] MEDS ORDERED: fentaNYL 100 MCG/2 ML INJ ONE (08:41)
[2019-07-09] MEDS ORDERED: SODIUM CHLORIDE 0.9% 500 ML 0 ML ONE (08:44)
[2019-07-09] MEDS: VALSARTAN 40 MG TAB PO SCH ×2 (10:00→21:44)
[2019-07-09] MEDS: FERROUS SULFATE 325 MG TAB PO SCH ×2 (10:00→21:43)
--- NOTE | 2019-07-09 10:08 | Post Operative Note ---
Date of procedure: 07/09/19 Pre-op diagnosis: Pelvic abscess Post-op diagnosis: same Procedure: CT guided drainage of pelvic abscess with 140 mL of purulent material removed and 8 Fr drain placed Anesthesia: local (w/ conscious sedation) Surgeon: BETZAIDA SCHERER Estimated blood loss: minimal Specimen disposition: to lab Condition: stable Disposition: floor
[2019-07-09] MEDS: oxyCODONE /ACETAMINOPHEN 5-325MG TAB PO PRN (13:07)
[2019-07-09] MEDS: GENTAMICIN 480 MG in SODIUM CHLORIDE 0.9% 100 ML IV SCH (14:31)
--- NOTE | 2019-07-09 14:34 | Event Note ---
HD#3 Temperature spoke ~5AM 102.2 Day of Procedure. Patient is s/p CT guided drainage of TOA Last Vital Signs Temp 99.1 F 07/09/19 11:07 Pulse 101 H 07/09/19 11:07 Resp 20 07/09/19 11:07 BP 107/65 07/09/19 11:07 Pulse Ox 93 07/09/19 11:07 TOA Fever P 1. Infectious Disease consult to adjust antibiotics as clinically indicated. 2. Ampicillin added to Gent/Clinda 3. Await culture of TOA. 4. Blood cultures negative to date
[2019-07-09 15:34] LABS: Hematocrit 29.4 % (30.3-42.9); Hemoglobin 9.4 gm/dl (10.1-14.3); Mean Corpuscular HGB Conc 32 % (30-34); Mean Corpuscular Volume 76 fl (79-97); Platelet Count 267 K/mm3 (140-440); Red Blood Count 3.89 M/mm3 (3.65-5.03)
--- NOTE | 2019-07-09 15:45 | Consultation ---
History of Present Illness - Reason for Consult Consult date: 07/09/19 TOA Requesting physician: ALFRED NEWMAN - History of Present Illness 33 yo female with morbid obesity admitted on 07/07/2019 due to a-week history of bilateral lower abdominal pain, nausea, vomiting, dysuria and subjective fever. Patient is since 2006. Reports HIV test negative within 6 months. Denies previous STDs. Denies cough or SOB. Denies vaginal discharge. In the ED, temp 102.1, HR 121, R20, BP 141/49, O2 92%. WBC 18.6. Creat 1.1. UA with wbc 16 LE neg. Blood culture 07/07/[address] shows multi loculated, somewhat tubular abscess in the upper left hemipelvis extending to the upper midline pelvis. This abscess appears to originate in the left adnexa. This collection measures roughly 12 x 6 x 5 cm. There are mild surrounding inflammatory changes. TV US shows a complex fluid collection in the upper pelvis and left adnexa 13.4 x 6.4 cm. Patient underwent a CT guided drainage of pelvic abscess with 140 mL of purulent material removed and 8 Fr drain placed today. ID consulted for further management. Review of Systems: General: no fever, chills, no malaise Cutaneous: no rash, pruritus Head: no headaches or injury Eyes: no changes in vision, eye pain, double vision Ears: no ear pain, ear discharge, ringing or hearing loss Nose: no nose bleeding, stuffiness Mouth & throat: no bleeding gums, no horseness, no dental problems, or swollen glands Neck: no pain, node enlargement/lumps, tyroid enlargement or tenderness Respiratory: no SOB, no cough, no LIN, wheezing, sputum, hemoptysis, pleuritic chest pain Cardiovascular: no chest pain, leg edema, cyanosis, LIN, orthopnea Musculoskeletal: no edema Gastrointestinal: + nausea, + vomiting, + abdominal pain Genitourinary/Reproductive: no frequent urination, dysuria, hematuria, incontinence Neurogical: no seizures, no headaches, no weakness, no paresthesias, no loss of speech or vision; no memory loss, no vertigo, no tremors, no numbness Psychiatric: stable mood; no excessive anxiety, sadness or moodiness Past History Past Medical History: other (morbid obesity) Past Surgical History: No surgical history Social history: , lives with family, other (denies alcohol, last marijuana use >1 year) Medications and Allergies Allergies Allergy/AdvReac Type Severity Reaction Status Date / Time No Known Allergies Allergy Unverified 12/13/17 09:41 Home Medications Medication Instructions Recorded Confirmed Last Taken Type Valsartan/Hydrochlorothiazide 1 each PO DAILY 07/07/19 07/07/19 Unknown History [Valsartan-Hctz 320-25 mg Tab] valACYclovir [Valtrex] 500 mg PO DAILY 07/07/19 07/07/19 Unknown History Active Meds: Active Medications Acetaminophen (Tylenol) 650 mg PO Q6H PRN PRN Reason: Pain, Mild (1-3) Last Admin: 07/09/19 05:35 Dose: 650 mg Documented by: Diphenhydramine HCl (Benadryl) 25 mg PO Q6H PRN PRN Reason: Itching Last Admin: 07/07/19 22:17 Dose: 25 mg Documented by: Docusate Sodium (Colace) 100 mg PO BID PRN PRN Reason: Constipation Ferrous Sulfate (Feosol) 325 mg PO BID [facility] Last Admin: 07/09/19 10:00 Dose: Not Given Documented by: Clindamycin HCl (Cleocin 900 Mg/50 Ml) 900 mg in 50 mls @ 100 mls/hr IV Q8HR [facility]; Protocol Last Admin: 07/09/19 13:11 Dose: 100 mls/hr Documented by: Gentamicin Sulfate 480 mg/ (Sodium Chloride) 112 mls @ 200 mls/hr IV Q24H [facility] Last Admin: 07/09/19 14:31 Dose: 200 mls/hr Documented by: Lactated Ringer's (Lactated Ringers) 1,000 mls @ 75 mls/hr IV DIRECT [facility] Last Admin: 07/09/19 03:30 Dose: 75 mls/hr Documented by: Ampicillin Sodium (Ampicillin/Ns 2 Gm/100 Ml) 2 gm in 100 mls @ 100 mls/hr IV Q6HR [facility] Last Admin: 07/09/19 12:28 Dose: 100 mls/hr Documented by: Magnesium Hydroxide (Milk Of Magnesia) 30 ml PO QDAY PRN PRN Reason: Constipation Oxycodone/Acetaminophen (Percocet 5/325) 2 tab PO Q6H PRN PRN Reason: Pain, Moderate (4-6) Last Admin: 07/09/19 13:07 Dose: 2 tab Documented by: Valsartan (Diovan) 40 mg PO BID [facility] Last Admin: 07/09/19 10:00 Dose: Not Given Documented by: Physical Examination - Physical Exam Narrative exam: General appearance: Alert in NAD Eyes: anicteric sclerae, moist conjunctivae; no lid-lag; PERRLA HENT: Atraumatic; oropharynx clear with moist mucous membranes and no mucosal ulcerations/no oral thrush; normal hard and soft palate. Lungs: CTA, with normal respiratory effort and no intercostal retractions CV: RRR no murmur Abdomen: Soft, +tenderness diffusely right sided drain with greenish fluid Extremities: no edema, no cyanosis Skin: No rash. Psych: Appropriate affect, alert and oriented to person, place and time. Neuro: alert and oriented x 3. Moving all extermities - Constitutional Vitals: Vital Signs Temp Pulse Resp BP Pulse Ox 99.1 F 101 H 20 107/65 93 07/09/19 11:07 07/09/19 11:07 07/09/19 11:07 07/09/19 11:07 07/09/19 11:07 Temperature -Last 24 Hours Temperature 99.1 F Temperature 102.2 F Temperature 98.5 F Temperature 98.2 F Results - Labs CBC & Chem 7: 07/09/19 14:59 07/08/19 07:07 Labs: Abnormal lab results 07/08/19 Range/Units 21:59 POC Glucose 131 H (70-105) Assessment and Plan Cultures: Blood culture 07/07/2019 no growth so far. Urine culture 07/07/2019 10-100K mixed bacteria Assessment: 33 yo female with morbid obesity admitted on 07/07/2019 due to a-week history of bilateral lower abdominal pain, nausea, vomiting and subjective fever. 1) Sepsis: present on admission with fever, tachycardia, leukocytosis; source PID/TOA +/- UTI 2) PID/large TOA: CT shows multi loculated, somewhat tubular abscess in the upper left hemipelvis extending to the upper midline pelvis. This abscess appears to originate in the left adnexa. This collection measures roughly 12 x 6 x 5 cm. There are mild surrounding inflammatory changes. TV US shows a complex fluid collection in the upper pelvis and left adnexa 13.4 x 6.4 cm. Patient underwent a CT guided drainage of pelvic abscess with 140 mL of purulent material removed and 8 Fr drain placed today. 3) UTI: UA with wbc 16 LE neg. Urine culture growing contaminants Recommendations: follow up drainage cultures stop ampicillin, gentamicin and clindamycin start ceftriaxone 2 gm IV qday, metronidazole 500 mg IV q 8h and doxycycline 100 mg IV q 12 h f/u GC and Chlamydia NAAT Will follow. Lexi Dick MD Infectious Diseases Ase Certified Technician [facility] M [phone] O [phone]
[2019-07-09 15:47] LABS: Red Cell Distribution Width 20.8 % (13.2-15.2)
[2019-07-09] MEDS: metroNIDAZOLE/NS 500 MG/100 ML 500 MG/100 ML BAG IV SCH (17:45)
[2019-07-09] MEDS: cefTRIAXone/NS 2 GM/100 ML 2 GM/100 ML BAG IV SCH (19:54)
[2019-07-09] MEDS: DOXYCYCLINE HYCLATE 100 MG in SODIUM CHLORIDE 0.9% 250ML 250 ML IV SCH (21:47)
[2019-07-10] MEDS: AMPICILLIN/NS 2 GM/100 ML 2 GM/100 ML BAG IV SCH ×2 (01:30→06:14)
[2019-07-10] MEDS: LACTATED RINGERS 1,000 ML IV SCH ×2 (01:51→15:38)
[2019-07-10] MEDS: oxyCODONE /ACETAMINOPHEN 5-325MG TAB PO PRN ×3 (01:59→22:51)
[2019-07-10] MEDS: metroNIDAZOLE/NS 500 MG/100 ML 500 MG/100 ML BAG IV SCH ×3 (02:48→16:30)
[2019-07-10] MEDS: DOXYCYCLINE HYCLATE 100 MG in SODIUM CHLORIDE 0.9% 250ML 250 ML IV SCH ×2 (05:00→18:00)
[2019-07-10] MEDS: ACETAMINOPHEN 325 MG TAB PO PRN (05:48)
[2019-07-10 07:07] LABS: Basophils % (Auto) 0.2 % (0.0-1.8); Eosinophils # (Auto) 0.1 K/mm3 (0.0-0.4); Eosinophils % (Auto) 0.5 % (0.0-4.3); Hematocrit 27.6 % (30.3-42.9); Hemoglobin 8.8 gm/dl (10.1-14.3); Lymphocytes # (Auto) 1.5 K/mm3 (1.2-5.4); Mean Corpuscular HGB Conc 32 % (30-34); Mean Corpuscular Volume 75 fl (79-97); Monocytes % (Auto) 7.1 % (0.0-7.3); Platelet Count 295 K/mm3 (140-440); Red Blood Count 3.67 M/mm3 (3.65-5.03)
[2019-07-10 07:18] LABS: Red Cell Distribution Width 20.4 % (13.2-15.2)
--- NOTE | 2019-07-10 10:01 | Progress Note ---
Assessment and Plan - Patient Problems (1) Leukocytosis Current Visit: Yes Status: Acute Plan to address problem: WBC 18-->14-->13 (2) Tubo-ovarian abscess Current Visit: Yes Status: Acute Plan to address problem: s/p CT guided drain by IR. Culture + for Group G Strep. (3) Heavy menstrual bleeding Current Visit: Yes Status: Acute Plan to address problem: I discussed with Ms Wiley the need for outpatient follow-up with endometrial biopsy due to her irregular heavy menses to rule out ovarian cancer and/or hyperplasia. She states her PCP has scheduled her an appointment for a clothing sales assistant for outpatient evaluation. (4) Sepsis Current Visit: Yes Status: Acute Plan to address problem: Per ID consult stop Amp/Gent/Clinda. Start Ceftriaxone/Flagyl and Doxy. Temperature remains 100-101. Will re-evaluate at 24hrs post starting new antibiotics started 07/09 evening (after 5pm) Patient appears clinically stable. Start DVT prophylaxis in morbidly obese, limited mobility patient. (5) Renal insufficiency Current Visit: Yes Status: Acute Plan to address problem: Likely due to Gentamicin. Spoke with Pharmacist (Nahomi) and agrees. Last Gent 07/09 at ~2pm. Will repeat BMP in AM Give LR bolus now Measure urinary output. Collect strict I/Os. If unable to get accurate count will have Malave catheter placed. Goal is to avoid additional catheter while septic but if unable to get accurate count will have placed. Subjective - Subjective Interval history: 33yo G0 POD#1 s/p CT guided IR drain of tubo-ovarian abscess. She only complains of "pinching" at site of abdominal incision. Patient is tearful because desires to be discharged. Discussed cessation and effect of Gentamicin vs sepsis or renal function. She understands plan to hydrate, calculate urine output and follow Cr until discharge. Objective - Vital Signs Latest vital signs: Vital Signs Temp Pulse Pulse Pulse Resp Resp Resp 07/10/19 05:52 97.6 F 07/10/19 02:39 100.6 F H 96 H 07/10/19 00:20 07/09/19 23:50 101.2 F H 07/09/19 22:49 98.8 F 108 H 22 07/09/19 21:44 98 H 07/09/19 21:30 102 H 20 07/09/19 20:08 07/09/19 16:51 100.8 F H 99 H 20 07/09/19 11:07 99.1 F 101 H 20 07/09/19 10:05 104 H 24 07/09/19 10:01 103 H 21 07/09/19 09:58 102 H 16 BP BP BP BP Pulse Ox Pulse Ox Pulse Ox 07/10/19 05:52 07/10/19 02:39 122/77 07/10/19 00:20 95 07/09/19 23:50 07/09/19 22:49 135/80 86 07/09/19 21:44 114/62 07/09/19 21:30 94 07/09/19 20:08 98 07/09/19 16:51 87/43 94 07/09/19 11:07 107/65 93 07/09/19 10:05 97/55 99 07/09/19 10:01 91/48 99 07/09/19 09:58 103/49 99 Intake and Output 07/09/19 07/10/19 07/10/19 23:59 07:59 15:59 Intake Total 3730 100 Output Total 30 Balance 3730 70 Intake: IV 1450 100 AMPICILLIN/NS 2 GM/100 ML 100 100 2 gm In 100 ml @ 100 mls /hr IV Q6HR [facility] Rx#: [id number] Doxycycline Hyclate 100 250 mg In NaCl 0.9% 250Ml 250 ml @ 250 mls/hr IV Q12H [facility] Rx#:[id number] FLAGYL 500 MG/100 ML 500 100 mg In 100 ml @ 100 mls/hr IV Q8H [facility] Rx#:[id number] Lactated Ringers 1,000 ml 1000 @ 75 mls/hr IV DIRECT [facility] Rx#:[id number] Oral 2280 Output: Drainage 30 Abdomen 30 Other: Total, Intake Amount 560 Total, Output Amount 30 Voiding Method Toilet # Voids Void 2 Weight 155.7 kg Patient Weight 07/10/19 23:59 Weight 155.7 kg - Exam Abdomen: Present: soft, other (Wound dressings clean and dry, thick purulent yellow/green discharge present in wound collection bag) Vulva: both: normal ( alessandro collecting bright red menstrual blood) - Labs Labs: Abnormal lab results 07/09/19 07/10/19 Range/Units 14:59 06:08 WBC 14.4 H 13.6 H (4.5-11.0) K/mm3 Hgb 9.4 L 8.8 L (10.1-14.3) gm/dl Hct 29.4 L 27.6 L (30.3-42.9) % MCV 76 L 75 L (79-97) fl MCH 24 L 24 L (28-32) pg RDW 20.8 H 20.4 H (13.2-15.2) % Lymph % (Auto) 11.0 L (13.4-35.0) % [place] # 1.0 H (0.0-0.8) K/mm3 Seg Neutrophils % 81.2 H (40.0-70.0) % Seg Neutrophils # 11.1 H (1.8-7.7) K/mm3
[2019-07-10 11:18] LABS: Albumin 2.7 g/dL (3.9-5); Calcium 8.3 mg/dL (8.4-10.2)
[2019-07-10] MEDS ORDERED: LACTATED RINGERS 1,000 ML IV ONE (11:37)
[2019-07-10] MEDS: VALSARTAN 40 MG TAB PO SCH ×2 (11:52→22:53)
[2019-07-10] MEDS: FERROUS SULFATE 325 MG TAB PO SCH ×2 (11:52→22:54)
--- NOTE | 2019-07-10 16:28 | Progress Note ---
Assessment and Plan Cultures: Blood culture 07/07/2019 no growth so far. Urine culture 07/07/2019 10-100K mixed bacteria IR drainage 07/09/2019 Strep group G Assessment: 33 yo female with morbid obesity admitted on 07/07/2019 due to a-week history of bilateral lower abdominal pain, nausea, vomiting and subjective fever. 1) Sepsis: still fever and leukocytosis and output from drain; source PID/TOA +/- UTI 2) PID/large TOA: due to Strep group G. Strep group G is part of normal yuriy of genital tract. CT shows multi loculated, somewhat tubular abscess in the upper left hemipelvis extending to the upper midline pelvis. This abscess appears to originate in the left adnexa. This collection measures roughly 12 x 6 x 5 cm. There are mild surrounding inflammatory changes. TV US shows a complex fluid collection in the upper pelvis and left adnexa 13.4 x 6.4 cm. Patient underwent a CT guided drainage of pelvic abscess with 140 mL of purulent material removed and 8 Fr drain placed on 07/09. Continue ceftriaxone 2 gm IV qday, metronidazole 500 mg IV q 8h and doxycycline 100 mg IV q 12 h 3) UTI: UA with wbc 16 LE neg. Urine culture growing contaminants Recommendations: monitor fever and leukocytosis eval drain output if not better repeat pelvic US tomorrow follow up drainage cultures continue ceftriaxone 2 gm IV qday, metronidazole 500 mg IV q 8h and doxycycline 100 mg IV q 12 h f/u GC and Chlamydia NAAT Will follow. Lexi Dick MD Infectious Diseases Elastic Att[employer] [facility] M [phone] O [phone] Subjective Date of service: 07/10/19 Principal diagnosis: toa Interval history: Patient feels better, abdominal pain is better. Still fever 101. Objective - Exam Narrative Exam: General appearance: Alert in NAD Eyes: anicteric sclerae, moist conjunctivae; no lid-lag; PERRLA HENT: Atraumatic; oropharynx clear with moist mucous membranes and no mucosal ulcerations/no oral thrush; normal hard and soft palate. Lungs: CTA, with normal respiratory effort and no intercostal retractions CV: RRR no murmur Abdomen: Soft, +tenderness diffusely right sided drain with greenish fluid Extremities: no edema, no cyanosis Skin: No rash. Psych: Appropriate affect, alert and oriented to person, place and time. Neuro: alert and oriented x 3. Moving all extermities - Constitutional Vitals: Vital Signs Temp Pulse Resp BP Pulse Ox 97.6 F 96 H 22 122/77 93 07/10/19 05:52 07/10/19 02:39 07/09/19 22:49 07/10/19 02:39 07/10/19 10:05 Temperature -Last 24 Hours Temperature 97.6 F Temperature 100.6 F Temperature 101.2 F Temperature 98.8 F Temperature 100.8 F - Labs CBC & Chem 7: 07/10/19 06:08 07/10/19 10:24 Labs: Abnormal lab results 07/10/19 07/10/19 Range/Units 06:08 10:24 WBC 13.6 H (4.5-11.0) K/mm3 Hgb 8.8 L (10.1-14.3) gm/dl Hct 27.6 L (30.3-42.9) % MCV 75 L (79-97) fl MCH 24 L (28-32) pg RDW 20.4 H (13.2-15.2) % Lymph % (Auto) 11.0 L (13.4-35.0) % [place] # 1.0 H (0.0-0.8) K/mm3 Seg Neutrophils % 81.2 H (40.0-70.0) % Seg Neutrophils # 11.1 H (1.8-7.7) K/mm3 Chloride 95.9 L (98-107) mmol/L BUN 31 H (7-17) mg/dL Creatinine 2.0 H D (0.7-1.2) mg/dL Glucose 112 H (65-100) mg/dL Calcium 8.3 L (8.4-10.2) mg/dL Albumin 2.7 L (3.9-5) g/dL
[2019-07-10] MEDS: ENOXAPARIN 40 MG/0.4 ML INJ SUB-Q SCH (17:59)
[2019-07-10] MEDS: cefTRIAXone/NS 2 GM/100 ML 2 GM/100 ML BAG IV SCH (19:07)
[2019-07-11] MEDS: metroNIDAZOLE/NS 500 MG/100 ML 500 MG/100 ML BAG IV SCH ×3 (01:14→17:24)
[2019-07-11] MEDS: DOXYCYCLINE HYCLATE 100 MG in SODIUM CHLORIDE 0.9% 250ML 250 ML IV SCH ×2 (05:57→17:27)
[2019-07-11] MEDS: oxyCODONE /ACETAMINOPHEN 5-325MG TAB PO PRN ×4 (06:01→22:24)
[2019-07-11] MEDS: ENOXAPARIN 40 MG/0.4 ML INJ SUB-Q SCH ×2 (09:39→22:24)
[2019-07-11] MEDS: FERROUS SULFATE 325 MG TAB PO SCH ×2 (09:39→22:25)
[2019-07-11] MEDS: VALSARTAN 40 MG TAB PO SCH ×2 (09:40→22:24)
[2019-07-11 10:32] LABS: BUN/Creatinine Ratio 22; Blood Urea Nitrogen 22 mg/dL (7-17); Calcium 8.4 mg/dL (8.4-10.2); Hemolysis Index 1
--- NOTE | 2019-07-11 11:22 | Progress Note ---
Assessment and Plan Cultures: Blood culture 07/07/2019 no growth so far. Urine culture 07/07/2019 10-100K mixed bacteria IR drainage 07/09/2019 Strep group G Assessment: 33 yo female with morbid obesity admitted on 07/07/2019 due to a-week history of bilateral lower abdominal pain, nausea, vomiting and subjective fever. 1) Sepsis: still fever and leukocytosis and output from drain; source PID/TOA +/- UTI 2) PID/large TOA: due to Strep group G. Strep group G is part of normal yuriy of genital tract. CT shows multi loculated, somewhat tubular abscess in the upper left hemipelvis extending to the upper midline pelvis. This abscess appears to originate in the left adnexa. This collection measures roughly 12 x 6 x 5 cm. There are mild surrounding inflammatory changes. TV US shows a complex fluid collection in the upper pelvis and left adnexa 13.4 x 6.4 cm. Patient underwent a CT guided drainage of pelvic abscess with 140 mL of purulent material removed and 8 Fr drain placed on 07/09. Continue ceftriaxone 2 gm IV qday, metronidazole 500 mg IV q 8h and doxycycline 100 mg IV q 12 h 3) UTI: UA with wbc 16 LE neg. Urine culture growing contaminants Recommendations: repeat pelvic US as pain is not significantly better eval drain output follow up drainage cultures continue ceftriaxone 2 gm IV qday, metronidazole 500 mg IV q 8h and doxycycline 100 mg IV q 12 h D3 f/u GC and Chlamydia NAAT - still pending Will follow. Lexi Dick MD Infectious Diseases Body Press Operator [facility] M [phone] O [phone] Subjective Date of service: 07/11/19 Principal diagnosis: toa Interval history: Patient feels better, abdominal pain is better. Fever trending down. Objective - Exam Narrative Exam: General appearance: Alert in NAD Eyes: anicteric sclerae, moist conjunctivae; no lid-lag; PERRLA HENT: Atraumatic; oropharynx clear with moist mucous membranes and no mucosal ul cerations/no oral thrush; normal hard and soft palate. Lungs: CTA, with normal respiratory effort and no intercostal retractions CV: RRR no murmur Abdomen: Soft, +tenderness diffusely right sided drain with greenish fluid Extremities: no edema, no cyanosis Skin: No rash. Psych: Appropriate affect, alert and oriented to person, place and time. Neuro: alert and oriented x 3. Moving all extermities - Constitutional Vitals: Vital Signs Temp Pulse Resp BP Pulse Ox 97.8 F 80 24 129/86 94 07/11/19 06:11 07/11/19 07:10 07/11/19 06:11 07/11/19 09:40 07/11/19 08:47 Temperature -Last 24 Hours Temperature 97.8 F Temperature 97.7 F - Labs CBC & Chem 7: 07/10/19 06:08 07/11/19 09:42 Labs: Abnormal lab results 07/10/19 07/11/19 Range/Units 10:24 09:42 Potassium 3.3 L (3.6-5.0) mmol/L Chloride 97.5 L (98-107) mmol/L BUN 22 H (7-17) mg/dL Creatinine 2.0 H D (0.7-1.2) mg/dL Glucose 121 H (65-100) mg/dL
[2019-07-11] MEDS: LACTATED RINGERS 1,000 ML IV SCH (12:19)
--- NOTE | 2019-07-11 13:30 | Progress Note ---
Assessment and Plan - Patient Problems (1) Leukocytosis Current Visit: Yes Status: Acute (2) Tubo-ovarian abscess Current Visit: Yes Status: Acute Plan to address problem: 110ml drainage post-op Pain better but 2-8/10 Afebrile for 24hrs Due to pain and continued drainage will repeat CT in AM to ensure size of TOA decreasing appropriately. Clinically stable and improved s/p IR drain and antibiotics. (3) Heavy menstrual bleeding Current Visit: Yes Status: Acute (4) Sepsis Current Visit: Yes Status: Acute (5) Renal insufficiency Current Visit: Yes Status: Acute Subjective - Subjective Principal diagnosis: toa Interval history: 33yo G0 POD#1 s/p CT guided IR drain of tubo-ovarian abscess. She only complains of "pinching" at site of abdominal incision. Patient is tearful because desires to be discharged. Discussed cessation and effect of Gentamicin vs sepsis or renal function. She understands plan to hydrate, calculate urine output and follow Cr until discharge. Objective - Vital Signs Latest vital signs: Vital Signs Temp Pulse Resp BP BP Pulse Ox 07/11/19 11:25 97.9 F 81 22 132/77 97 07/11/19 09:43 81 20 129/86 96 07/11/19 09:40 129/86 07/11/19 08:47 94 07/11/19 07:10 80 143/81 07/11/19 06:11 97.8 F 81 24 189/112 93 07/10/19 23:14 97.7 F 91 H 26 H 146/77 92 07/10/19 22:53 86 114/58 07/10/19 18:33 99 H 139/69 87 07/10/19 17:57 20 Intake and Output 07/10/19 07/11/19 07/11/19 23:59 07:59 15:59 Intake Total 1250 700 Balance 1250 700 Intake: IV 1250 100 Doxycycline Hyclate 100 250 mg In NaCl 0.9% 250Ml 250 ml @ 250 mls/hr IV Q12H [facility] Rx#:[id number] FLAGYL 500 MG/100 ML 500 100 mg In 100 ml @ 100 mls/hr IV Q8H [facility] Rx#:[id number] Lactated Ringers 1,000 ml 1000 @ 150 mls/hr IV DIRECT [facility] Rx#:[id number] Oral 600 Other: Total, Intake Amount 600 Voiding Method Toilet Toilet Toilet # Voids 4 Void 4 # Bowel Movements 0 - Labs Labs: Abnormal lab results 07/11/19 Range/Units 09:42 Potassium 3.3 L (3.6-5.0) mmol/L Chloride 97.5 L (98-107) mmol/L BUN 22 H (7-17) mg/dL Glucose 121 H (65-100) mg/dL
--- NOTE | 2019-07-11 13:33 | Discharge Summary ---
Providers - Providers Date of Admission: 07/07/19 05:49 Attending physician: ALFRED NEWMAN 07/07/19 09:17 Consult to Interventional Radiology [CONS] Urgent Consulting Provider: BETZAIDA TELLEZ Reason For Exam: Pelvic abscess, fever Place consult to:: Dr. Tellez Notified:: No Was contact made?: No 07/09/19 14:19 Consult to Physician [CONS] Urgent Comment: Please adjust antibiotics Consulting Provider: CHRISTAL MCCLAIN Physician Instructions: Reason For Exam: Tubo-ovarian abscess T spike despite antbx Primary care physician: KELSI PERES Hospitalization Procedure: other (CT guided drain of tubo-ovarian abscess by interv. radiology) Incision: normal Hospital course: 33yo G0 admitted for sepsis found to have 13cm tubo-ovarian abscess. It was subsequently drained. She was treated with Amp/Gent/Clinda. Gent resulted in acute renal insufficiency with returned to baseline after discontinue. She was switched to Doxycycline, Ceftriaxone and Flagyl. Fever effervesced,, WBC trended down and she was clinically stable. Repeat US revealed no tubo-ovarian abscess. Drain had 0cc ouptut on day of discharge. She is to follow-up with [facility] Radiology with Dr. Scherer for drain removal in [address] Hurtado with Infectious Disease in 7-10 business days. She will also follow-up with her PCP and janitorial assistant within 2 weeks. Condition at discharge: Fair Disposition: DC-30 STILL A PATIENT - Discharge Diagnoses (1) Leukocytosis Status: Acute (2) Tubo-ovarian abscess Status: Acute (3) Heavy menstrual bleeding Status: Acute (4) Sepsis Status: Acute (5) Renal insufficiency Status: Acute Plan - Discharge Medications Prescriptions: Doxycycline Hyclate [Doxycycline Hyclate TAB] 100 mg PO Q12HR 14 Days #28 tab Ferrous Sulfate [Feosol 325 MG tab] 325 mg PO BID 30 Days #60 tablet metroNIDAZOLE [Flagyl TAB] 500 mg PO Q12HR 14 Days #28 tab Acetaminophen/Codeine [Tylenol /Codeine # 3 tab] 1 tab PO Q6H PRN #20 tab PRN Reason: Pain , Severe (7-10) - Provider Discharge Summary Activity: no sex for 6 weeks, no heavy lifting 4 weeks, no strenuous exercise Additional instructions: [] Smoking cessation referral if applicable(refer to patient education folder for contact #) [] Refer to [facility] Booklet Call your doctor immediately for: * Fever > 100.5 * Heavy vaginal bleeding ( >1 pad per hour) * Severe persistent headache * Shortness of breath * Reddened, hot, painful area to leg or breast * Drainage or odor from incision. * Keep incision clean and dry at all times and follow doctor's instructions regarding bathing/showering - Follow up plan Follow up: PRIMARY CARE, [Referring] - 3-5 Days BETZAIDA SCHERER MD [Staff Physician] - 7 Days CHRISTAL MCCLAIN MD [Staff Physician] - 10 Days
[2019-07-11] MEDS: POTASSIUM CHLORIDE ER 20 MEQ TAB PO SCH (17:24)
[2019-07-11] MEDS: cefTRIAXone/NS 2 GM/100 ML 2 GM/100 ML BAG IV SCH (17:32)
[2019-07-12] MEDS: metroNIDAZOLE/NS 500 MG/100 ML 500 MG/100 ML BAG IV SCH ×3 (00:38→15:49)
[2019-07-12] MEDS: DOXYCYCLINE HYCLATE 100 MG in SODIUM CHLORIDE 0.9% 250ML 250 ML IV SCH ×2 (05:12→17:05)
[2019-07-12] MEDS: oxyCODONE /ACETAMINOPHEN 5-325MG TAB PO PRN ×2 (05:12→13:54)
[2019-07-12] MEDS: ENOXAPARIN 40 MG/0.4 ML INJ SUB-Q SCH (09:03)
[2019-07-12] MEDS: VALSARTAN 40 MG TAB PO SCH (09:04)
[2019-07-12] MEDS: FERROUS SULFATE 325 MG TAB PO SCH (09:04)
[2019-07-12] MEDS: POTASSIUM CHLORIDE ER 20 MEQ TAB PO SCH (09:18)
[2019-07-12 09:24] LABS: BUN/Creatinine Ratio 18; Blood Urea Nitrogen 14 mg/dL (7-17); Calcium 8.2 mg/dL (8.4-10.2); Hemolysis Index 1
--- NOTE | 2019-07-12 13:34 | Progress Note ---
Assessment and Plan Cultures: Blood culture 07/07/2019 no growth so far. Urine culture 07/07/2019 10-100K mixed bacteria IR drainage 07/09/2019 Strep group G Assessment: 33 yo female with morbid obesity admitted on 07/07/2019 due to a-week history of bilateral lower abdominal pain, nausea, vomiting and subjective fever. 1) Sepsis: still fever and leukocytosis and output from drain; source PID/TOA +/- UTI 2) PID/large TOA: due to Strep group G. Strep group G is part of normal yuriy of genital tract. GC and Chlamydia NAAT not detected. CT shows multi loculated, somewhat tubular abscess in the upper left hemipelvis extending to the upper midline pelvis. This abscess appears to originate in the left adnexa. This collection measures roughly 12 x 6 x 5 cm. There are mild surrounding inflammatory changes. TV US shows a complex fluid collection in the upper pelvis and left adnexa 13.4 x 6.4 cm. Patient underwent a CT guided drainage of pelvic abscess with 140 mL of purulent material removed and 8 Fr drain placed on 07/09. Continue ceftriaxone 2 gm IV qday, metronidazole 500 mg IV q 8h and doxycycline 100 mg IV q 12 h. 3) UTI: UA with wbc 16 LE neg. Urine culture growing contaminants Recommendations: repeat pelvic US today-pending eval drain output continue ceftriaxone 2 gm IV qday, metronidazole 500 mg IV q 8h and doxycycline 100 mg IV q 12 h D3 If clinically better ok to d/c home on keflex 1 gm PO QID (weight >130 kg) and flagyl 500 mg PO BID total 14 days until 07/23/2019 ID clinic f/u in 1-2 weeks Will follow. Lexi Dick MD Infectious Diseases Manager Interface [facility] M [phone] O [phone] Subjective Date of service: 07/12/19 Principal diagnosis: toa Interval history: Patient feels better, abdominal pain is better. No fever for 2 days. Objective - Exam Narrative Exam: General appearance: Alert in NAD Eyes: anicteric sclerae, moist conjunctivae; no lid-lag; PERRLA HENT: Atraumatic; oropharynx clear with moist mucous membranes and no mucosal ulcerations/no oral thrush; normal hard and soft palate. Lungs: CTA, with normal respiratory effort and no intercostal retractions CV: RRR no murmur Abdomen: Soft, +tenderness diffusely right sided drain with greenish fluid Extremities: no edema, no cyanosis Skin: No rash. Psych: Appropriate affect, alert and oriented to person, place and time. Neuro: alert and oriented x 3. Moving all extermities - Constitutional Vitals: Vital Signs Temp Pulse Resp BP Pulse Ox 98.1 F 81 22 147/84 93 07/12/19 12:32 07/12/19 12:32 07/12/19 12:32 07/12/19 12:32 07/12/19 12:32 Temperature -Last 24 Hours Temperature 98.1 F Temperature 99.4 F Temperature 99.5 F Temperature 97.9 F - Labs CBC & Chem 7: 07/10/19 06:08 07/12/19 08:42 Labs: Abnormal lab results 07/12/19 Range/Units 08:42 Calcium 8.2 L (8.4-10.2) mg/dL
--- NOTE | 2019-07-12 13:44 | Ultrasound Report ---
ULTRASOUND TRANSVAGINAL HISTORY: Follow-up tubo-ovarian abscess. Status post drainage by interventional radiology TECHNIQUE: Transvaginal imaging with color Doppler interrogation. FINDINGS: Compared to 07/07/2019. The uterus is anteverted and measures 10 x 5 x 6 cm. A 4.6 cm fibroid is noted the posterior fundus. The endometrium measures 8 mm. The right ovary is not visualized. No significant fluid collection is identified in the right adnexal region on transvaginal ultrasound. The left ovary is unremarkable measuring 2.8 x 1.8 x 2.1 cm. No free pelvic fluid. IMPRESSION: No collection consistent with a right tubo-ovarian abscess is identified on transvaginal ultrasound. This may represent resolution. If further evaluation is needed CT pelvis could be obtained. Uterine fibroid. Signer Name: Abhijit Moore Jr, MD Signed: 07/12/2019 1:40 PM Workstation Name: [id number]
[2019-07-12 16:55] VITALS: BP 142/84
[2019-07-12] MEDS: cefTRIAXone/NS 2 GM/100 ML 2 GM/100 ML BAG IV SCH (18:45)
--- NOTE | 2019-07-13 13:55 | Cat Scan Report ---
EXAM: CT guided 8 Fr pelvic fluid collection drain placement CLINICAL INDICATION: Left-sided tubo-ovarian abscess DATE: 07/09/19 ADVENTURE EDUCATION TEACHER: BETZAIDA SCHERER MD MEDICATIONS: Conscious sedation using Versed and fentanyl was performed under guidance of radiologic nursing. Continuous cardiopulmonary monitoring was utilized. PROCEDURE: Following an explanation of the risks, benefits and alternatives; written informed consent was obtained. The patient was brought to the CT suite and placed in the supine position on the CT table. [place] Aide CT was performed of the pelvis. After determining the appropriate site, the skin was infiltrated with lidocaine and a finder needle was placed. Intermittent CT was performed until the desired position was identified. The 18 gauge trocar needle was inserted into the pelvic fluid collection . Aspiration was performed and sent to the lab for analysis. J wire was then advanced through the needle and into the collection. The needle was exchanged for multiple dilators that were used to serially dilate over the wire. A 8 Fr APD drain was advanced over the wire and metal stiffener. The metal stiffener and wire were removed. Final CT scanning was performed. The pigtail was secured and aspirated until no more material could be aspirated. Sterile bandage was applied. A catheter was secured with 2, 2-0 silk and StatLock device. The patient tolerated the procedure well. There were no immediate postprocedural complications. FINDINGS: 1. Initial CT demonstrates a pelvic fluid collection. There is a satisfactory window for CT drainage. 2. Intermittent CT demonstrates the 18 gauge needle was placed in the pelvic fluid collection. 3. Wire is coiled in the pelvic fluid collection. 4. Final CT documents placement of a 8 Fr drain in the pelvic fluid collection. 5. A total of 130-140 mL of purulent foul-smelling material was aspirated through the drain and initial needle. IMPRESSION: Successful CT guided 8 drain placement in a pelvic fluid collection.
== END 2019-07-12 20:10 | disposition home or self-care (01) | DRG 872 ==
LOC: ED 00:05 → OB 05:49 → 3A 09:08
PROVIDERS: ADMIT Obstetrics & Gynecology; ATTEND Obstetrics & Gynecology
PROC: 5A09357 Assistance with Respiratory Ventilation, Less than 24 Consecutive Hours, Continuous Positive Airway Pressure (ICD-10-PCS; 2019-07-08)
PROC: 0W9J30Z Drainage of Pelvic Cavity with Drainage Device, Percutaneous Approach (ICD-10-PCS; principal; 2019-07-09)
PROC: 5A09357 Assistance with Respiratory Ventilation, Less than 24 Consecutive Hours, Continuous Positive Airway Pressure (ICD-10-PCS; 2019-07-09)
DX: A41.9 Sepsis, unspecified organism (principal); Z68.44 Body mass index [BMI] 60.0-69.9, adult; N70.03 Acute salpingitis and oophoritis; N39.0 Urinary tract infection, site not specified; D72.829 Elevated white blood cell count, unspecified; E87.6 Hypokalemia; N92.0 Excessive and frequent menstruation with regular cycle; E66.01 Morbid (severe) obesity due to excess calories; N28.9 Disorder of kidney and ureter, unspecified; N73.9 Female pelvic inflammatory disease, unspecified; G47.33 Obstructive sleep apnea (adult) (pediatric); I10 Essential (primary) hypertension; Z79.899 Other long term (current) drug therapy; Z82.49 Family history of ischemic heart disease and other diseases of the circulatory system; Z80.3 Family history of malignant neoplasm of breast
CPT/HCPCS: 10160; 36415; 74177; 76830; 77012; 80048; 80053; 80170; 81001; 82140; 82805; 82962; 83690; 84132; 84703; 85025; 85027; 85610; 85730; 87040; 87086; 87116; 87210; 87591; 93005; 93010; 93975; 94660; 94760; 96361; 96374; G0378; C1769; J0290; J0295; J0696; J1580; J1650; J2250; J2405; J3010; J3480; J7030; J7040; J7050; J7120; Q9967